=== PATIENT | male | born 1995 | race African-American/Black ===

== ENCOUNTER 2023-01-25 09:49 | Emergency (ER) | payer BC ==
[2023-01-25 10:10] VITALS: BP 128/84; PULSE 85; RESP 20; TEMP 97.6; BMI 30.4
[2023-01-25] MEDS ORDERED: ACETAMINOPHEN 325 MG TABLET (FP) PO ONE (11:45)
[2023-01-25] MEDS ORDERED: ALBUTEROL SO4 2.5/IPRATROPIUM 0.5 INH SOL 3 ML VIAL.NEB. NEB ONE ×3 (11:45→11:54)
[2023-01-25] MEDS ORDERED: ACETAMINOPHEN 325 MG TABLET (FP) ONE (11:53)
[2023-01-25] MEDS ORDERED: DEXAMETHASONE SOD PHOSPHATE 10 MG/1 ML VIAL IM ONE (12:22)
[2023-01-25 12:28] LABS: BASO % 0.5 % (0-2.0); EOS % 3.1 % (0-4.5); HEMATOCRIT 47.3 % (35.4-49); HEMOGLOBIN 15.9 GM/dL (11.7-16.9); LYMPH % 21.7 % (8-40); MCH 28.1 pg (25.7-33.7); MCHC 33.6 g/dl (32.0-35.9); MEAN CELL VOLUME 83.7 fl (80-96); MEAN PLT VOLUME 8.6 fl (7.5-11.1); MONO % 10.7 % (3.8-10.2); PLATELET COUNT 269 10^3/uL (134-434); RBC 5.65 M/mm3 (4.00-5.60); RDW 13.2 % (11.9-15.9); WHITE BLOOD COUNT 7.1 K/mm3 (4.0-10.0)
[2023-01-25] MEDS ORDERED: ALBUTEROL SO4 HFA INHALER IH ONE ×2 (12:39→12:55)
[2023-01-25] MEDS ORDERED: AZITHROMYCIN 250 MG TABLET PO ONE (12:40)
[2023-01-25 12:45] LABS: BLOOD UREA NITROGEN 14.8 mg/dL (7-18)
[2023-01-25 12:48] LABS: CREATININE 1.1 mg/dL (0.55-1.3)
[2023-01-25] MEDS ORDERED: DEXAMETHASONE SOD PHOSPHATE 10 MG/1 ML VIAL ONE (12:55)
== END 2023-01-25 13:00 | disposition home or self-care (01) ==
LOC: JER 09:49
PROC: 3E023GC Introduction of Other Therapeutic Substance into Muscle, Percutaneous Approach (ICD-10-PCS; principal; 2023-01-25)
PROC: 3E0F7GC Introduction of Other Therapeutic Substance into Respiratory Tract, Via Natural or Artificial Opening (ICD-10-PCS; 2023-01-25)
PROC: 3E0F7GC Introduction of Other Therapeutic Substance into Respiratory Tract, Via Natural or Artificial Opening (ICD-10-PCS; 2023-01-25)
DX: J45.901 Unspecified asthma with (acute) exacerbation (principal); R06.02 Shortness of breath; R50.9 Fever, unspecified; R53.81 Other malaise; R09.82 Postnasal drip; J02.9 Acute pharyngitis, unspecified; R06.2 Wheezing; Z20.822 Contact with and (suspected) exposure to COVID-19
CPT/HCPCS: 0241U-QW; 36415; 71046-TC-FY; 80048; 85025; 93005; 93010; 99285-25; J1100